=== PATIENT | male | born 1965 | race American Indian/Alaskan Native ===

== ENCOUNTER 2017-01-19 05:18 | Day surgery (SDC) | payer OTHER ==
[2017-01-19] MEDS ORDERED: fentaNYL 100 MCG/2 ML SDV ONE (06:14)
[2017-01-19] MEDS ORDERED: Midazolam 1 MG/ML 2 ML SDV ONE (06:14)
[2017-01-19] MEDS ORDERED: fentaNYL 100 MCG/2 ML SDV IV ONE ×4 (06:30→16:51)
[2017-01-19] MEDS ORDERED: Midazolam 1 MG/ML 2 ML SDV IV ONE ×7 (06:31→16:51)
[2017-01-19] MEDS ORDERED: Sodium Chloride 0.9% 10 ML Syringe FLUSH PRN (07:00)
[2017-01-19] MEDS ORDERED: Dextrose 5%-0.45% NaCl 1,000 ML IV SCH (07:00)
--- NOTE | 2017-01-19 07:13 | OR ---
DATE: 01/19/2017 PROCEDURE: Total colonoscopy. INSTRUMENT USED: CF-H180 AL Olympus video colonoscope. PREMEDICATIONS: Fentanyl 125 mcg intravenous, Versed 4 mg intravenous. Nasal O2 cannula. The procedure was done under pulse oximetry, BP recording, and secured entrance monitor. INDICATION: The patient with Hemoccult-positive stools. Colonoscopic examination is done for detection of any polypoid lesions and removal, endoscopic hemostasis therapy if needed. DESCRIPTION OF PROCEDURE: Initial rectal exam was unremarkable. Rigid anoscopy was normal. The colonoscope was passed with ease. Scattered diverticula were noted in the distal left colon along with some deformity. The scope was passed with ease up to the ileocecal area, photographs were taken of the normal- appearing cecum, identified by double-bulged ileocecal folds. No bleeding was noted from any of the visualized areas at the commencement of the examination. No stricture. No vascular ectasia. No large isolated ulcerations seen. No evidence of diffuse inflammatory bowel disease in the form of friability, contact bleeding, or ulcerations. No polyp or tumor mass identified. Probing the proximal sides of folds and flexures, using adequate distention and clearing of the stool material, withdrawal of the scope was made, cecum to rectum time was 6 minutes. No bleeding was noted from any of the visualized areas at the completion of examination. IMPRESSION: Diverticulosis. The patient tolerated the procedure well. [facility] /[id number]
--- NOTE | 2017-01-19 08:34 | LETTER ---
01/19/2017 Keri Romero NP [facility] [address] [place] [address] RE: ERASMO FAIRBANKS : 1965 Dear Ms. Romero: Mr. Erasmo Fairbanks underwent colonoscopic examination done this morning and he tolerated the procedure well. I herewith send a copy of the endoscopy note and photographs for your review. He has Hemoccult-positive stools and colonoscopy negative for any bleeding areas. He is scheduled for EGD. Thank you. Sincerely, [facility] /[id number]
[2017-01-19 08:51] VITALS: BP 112/67
== END 2017-01-19 08:53 | disposition home or self-care (01) ==
LOC: DL.ENDO 05:18
PROVIDERS: ATTEND Internal Medicine Gastroenterology
DX: K57.30 Diverticulosis of large intestine without perforation or abscess without bleeding (principal); E66.9 Obesity, unspecified; F32.9 Major depressive disorder, single episode, unspecified; E03.9 Hypothyroidism, unspecified; Z90.49 Acquired absence of other specified parts of digestive tract; F17.210 Nicotine dependence, cigarettes, uncomplicated; Z79.899 Other long term (current) drug therapy
CPT/HCPCS: 45378; J2250; J3010; J7042

== ENCOUNTER 2017-01-25 06:09 | Day surgery (SDC) | payer OTHER ==
[2017-01-25] MEDS ORDERED: fentaNYL 100 MCG/2 ML SDV ONE (06:15)
[2017-01-25] MEDS ORDERED: Midazolam 1 MG/ML 2 ML SDV ONE (06:15)
[2017-01-25] MEDS ORDERED: Dextrose 5%-0.45% NaCl 1,000 ML IV SCH (07:00)
[2017-01-25] MEDS ORDERED: fentaNYL 100 MCG/2 ML SDV IV ONE ×3 (07:20→16:29)
[2017-01-25] MEDS ORDERED: Midazolam 1 MG/ML 2 ML SDV IV ONE ×3 (07:21→16:29)
--- NOTE | 2017-01-25 08:01 | OR ---
DATE: 01/25/2017 PROCEDURES: Esophagogastroduodenoscopy and multiple pinch biopsies. INSTRUMENT USED: GIF-H180 Olympus video panendoscope. PREMEDICATIONS: No oral topical anesthesia used. Fentanyl 100 mcg intravenous, Versed 2 mg intravenous, nasal 2 L O2 cannula. The procedure was done under pulse oximetry, BP recording, and electronic device monitor. INDICATION: The patient with Hemoccult-positive stools and colonoscopy examination negative for any bleeding areas. Esophagogastroduodenoscopy is performed for detection of any active erosive lesions, Cross esophagus and/or malignancy also under consideration, H. pylori status to be determined, endoscopic hemostasis therapy if needed. DESCRIPTION OF PROCEDURE: The scope was passed with ease. Adequate visualization of the esophagus was made from proximal to distal areas. No upper esophageal lesions identified. No distal esophageal stricture. No uphill or downhill esophageal varices. No Bonnie-Mcelroy tear. No evidence of erosive esophagitis by [place] criteria. No esophageal polyp or tumor mass identified. Z-line was seen at around 40 cm distal to the oral verge, configuration consistent with grade 1 by ZAP classification. No proximal gastric varices noted. Gastric fundus examination by retroflexion showed no polypoid lesions. No gastric ulcer, malignant mass, or vascular ectasia identified. Patchy erythema of the gastric mucosa was noted in the distal body. Duodenal bulb showed no ulcer. Visualized second part of the duodenum was unremarkable. Multiple pinch biopsies were taken from the gastric antrum and proximal body and sent for PyloriTek test for H. pylori, and if negative in an hour, the tissue is to be sent for histopathology. No bleeding was noted from any of the visualized areas at the completion of examination. Photographs were taken of the duodenal bulb, gastric antrum, fundus, and distal esophagus. IMPRESSION: Patchy gastritis. The patient tolerated the procedure well. [facility] /[id number]
[2017-01-25 09:03] VITALS: BP 104/60
--- NOTE | 2017-01-25 09:55 | LETTER ---
01/25/[address] [facility] [address] [place] [address] RE: ERASMO FAIRBANKS : 1965 Dear Ms. Romero: Mr. Erasmo Fairbanks had esophagogastroduodenoscopy done this morning and he tolerated the procedure well. I herewith send a copy of the endoscopy note and photographs for your review. Thank you. Sincerely, [facility] /[id number]
== END 2017-01-25 09:25 | disposition home or self-care (01) ==
LOC: DL.ENDO 06:09
PROVIDERS: ATTEND Internal Medicine Gastroenterology
DX: K29.50 Unspecified chronic gastritis without bleeding (principal); K31.89 Other diseases of stomach and duodenum; F17.210 Nicotine dependence, cigarettes, uncomplicated; E66.09 Other obesity due to excess calories; E03.9 Hypothyroidism, unspecified; F32.9 Major depressive disorder, single episode, unspecified; G47.00 Insomnia, unspecified; Z88.0 Allergy status to penicillin; Z90.49 Acquired absence of other specified parts of digestive tract; Z79.899 Other long term (current) drug therapy
CPT/HCPCS: 43239; 87077; J2250; J3010; J7042

== ENCOUNTER 2020-09-14 18:46 | Emergency (ER) | payer OTHER ==
[2020-09-14] MEDS ORDERED: Potassium Chloride 10 MEQ Tab.ER PO ONE (18:47)
[2020-09-14] MEDS ORDERED: predniSONE 20 MG Tab PO ONE (18:47)
[2020-09-14] MEDS ORDERED: Azithromycin 250 MG Tab PO ONE (18:47)
[2020-09-14 18:57] VITALS: BP 135/78; PULSE 125
--- NOTE | 2020-09-14 19:36 | CR ---
PROCEDURE INFORMATION: Exam: XR Chest, 1 View Exam date and time: 09/14/2020 7:24 PM Age: 55 years old Clinical indication: Other: Covid TECHNIQUE: Imaging protocol: XR of the chest Views: 1 view. COMPARISON: No relevant prior studies available. FINDINGS: Lungs: Lung volumes are low which limits evaluation. Hazy opacity projecting over the lung bases. Pleural space: Unremarkable. No pleural effusion. No pneumothorax. Heart/Mediastinum: Unremarkable. No cardiomegaly. Bones/joints: Unremarkable. IMPRESSION: Patchy bilateral lower lobe pneumonia and or atelectasis.
[2020-09-14 19:45] LABS: ANION GAP 15.3 mEq/L (7-13); CHLORIDE,CL 94 mmol/L (98-107); SODIUM,NA 129 mmol/L (136-145)
--- NOTE | 2020-09-14 20:25 | EDM.PDOC ---
ED HPI GENERAL MEDICAL PROBLEM - General Chief Complaint: Respiratory Problem Stated Complaint: 97.1* TEMP. HE STATES HAS COVID. HARD TO BREATH Time Seen by Provider: 09/14/20 19:15 Source of Information: Reports: Patient History Limitations: Reports: No Limitations - History of Present Illness INITIAL COMMENTS - FREE TEXT/NARRATIVE: ED with c/o COVID dx 09/09, increased difficulty breathing, unable to sleep denies fever, no loss of taste or smell, some cough. Albuterol inhaler and cough medicine from clinic. Inhaler gone. - Related Data Allergies Allergy/AdvReac Type Severity Reaction Status Date / Time Penicillins Allergy Airway Verified 09/14/20 19:02 Tightness Home Meds: Home Meds Ibuprofen 400 mg PO ASDIRECTED 01/18/17 [History] Levothyroxine [Synthroid] 50 mcg PO DAILY 01/18/17 [History] Ondansetron [IMW: Ondansetron ODT] 4 - 8 mg PO DAILY 01/18/17 [History] Past Medical History Cardiovascular History: Reports: None Respiratory History: Reports: None Gastrointestinal History: Reports: None Genitourinary History: Reports: None Musculoskeletal History: Reports: None Neurological History: Reports: Other (See Below) Other Neuro History: INSOMNIA Psychiatric History: Reports: Depression Endocrine/Metabolic History: Reports: Hypothyroidism, Obesity/BMI 30+ Hematologic History: Reports: None Immunologic History: Reports: None Oncologic (Cancer) History: Reports: None Dermatologic History: Reports: None - Infectious Disease History Infectious Disease History: Reports: Chicken Pox, Measles, Novel Coronavirus - Past Surgical History HEENT Surgical History: Reports: Tonsillectomy GI Surgical History: Reports: Cholecystectomy Musculoskeletal Surgical History: Reports: None Social & Family History - Family History Family Medical History: No Pertinent Family History - Tobacco Use Tobacco Use Status *Q: Former Tobacco User Used Tobacco, but Quit: Yes Month/Year Tobacco Last Used: aug 2020 Second Hand Smoke Exposure: Yes - Recreational Drug Use Recreational Drug Use: No ED ROS GENERAL - Review of Systems Review Of Systems: See Below Constitutional: Reports: Malaise, Fatigue Respiratory: Reports: Shortness of Breath, Cough Cardiovascular: Reports: Dyspnea on Exertion. Denies: Chest Pain, Edema, Lightheadedness, Palpitations GI/Abdominal: Denies: Abdominal Pain, Decreased Appetite, Nausea, Vomiting Musculoskeletal: Reports: No Symptoms Skin: Reports: No Symptoms Neurological: Reports: No Symptoms Psychiatric: Reports: No Symptoms ED EXAM, GENERAL - Physical Exam Exam: See Below Exam Limited By: No Limitations General Appearance: Alert, No Apparent Distress, Obese Eye Exam: Bilateral Eye: EOMI Ears: Normal External Exam Nose: Normal Inspection Throat/Mouth: Normal Inspection, Normal Voice Head: Atraumatic, Normocephalic Neck: Normal Inspection Respiratory/Chest: Rales (bilateral bases, left greater) Cardiovascular: Regular Rate, Rhythm GI/Abdominal: Normal Bowel Sounds Extremities: Normal Inspection, Normal Range of Motion Neurological: Alert, Oriented, Normal Cognition Psychiatric: Normal Affect, Normal Mood Skin Exam: Warm, Dry, Intact, Normal Color Course - Vital Signs Last Recorded V/S: Last Vital Signs Temp 98.6 F 09/14/20 18:52 Pulse 125 H 09/14/20 18:52 Resp 18 09/14/20 18:52 BP 135/78 09/14/20 18:52 Pulse Ox 93 L 09/14/20 18:52 - Orders/Labs/Meds Orders: Active Orders 24 hr Category Date Time Status CULTURE BLOOD [BC] Stat Lab 09/14/20 19:16 Received Blood Culture x2 Reflex Set [OM.PC] Stat Oth 09/14/20 18:55 Ordered Labs: Laboratory Tests 09/14/20 09/14/20 09/14/20 Range/Units 19:16 19:16 19:16 WBC 6.9 (5.0-10.0) 10^3/uL RBC 5.57 (4.6-6.2) 10^6/uL Hgb 16.3 (14.0-18.0) g/dL Hct 47.2 (40.0-54.0) % MCV 84.7 (80-100) fL MCH 29.3 (27.0-34.0) pg MCHC 34.5 (33.0-35.0) g/dL Plt Count 213 (150-450) 10^3/uL Neut % (Auto) 65.9 (42.2-75.2) % Lymph % (Auto) 22.9 (20.5-50.1) % [place] % (Auto) 10.5 H (2-8) % Eos % (Auto) 0.6 L (1.0-3.0) % Baso % (Auto) 0.1 (0.0-1.0) % Add Manual Diff Yes Neutrophils % (Manual) 68 (42-75) % Lymphocytes % (Manual) 24 (20-50) % Monocytes % (Manual) 8 (2-8) % Atypical Lymphocytes Few D-Dimer, Quantitative 945 H (0-400) ng/mL Sodium 129 L (136-145) mmol/L Potassium 3.3 L (3.5-5.1) mmol/L Chloride 94 L (98-107) mmol/L Carbon Dioxide 23 (21-32) mmol/L Anion Gap 15.3 H (7-13) mEq/L BUN 10 (7-18) mg/dL Creatinine 1.00 (0.70-1.30) mg/dL Est Cr Clr Drug Dosing 75.32 mL/min Estimated GFR (MDRD) > 60 BUN/Creatinine Ratio 10.0 (No establ ref range) Glucose 109 H (74-99) mg/dL Lactic Acid (0.4-2.0) mmol/L Calcium 8.2 L (8.5-10.1) mg/dL Magnesium 1.6 L (1.8-2.4) mg/dL Total Bilirubin 0.9 (0.2-1.0) mg/dL AST 43 H (15-37) U/L ALT 45 (16-63) U/L Alkaline Phosphatase 71 (46-116) U/L Total Protein 7.4 (6.4-8.2) g/dL Albumin 3.2 L (3.4-5.0) g/dL Globulin 4.2 Albumin/Globulin Ratio 0.76 Amylase 42 (25-115) U/L Lipase 100 (73-393) U/L 11/30/20 Range/Units 19:16 WBC (5.0-10.0) 10^3/uL RBC (4.6-6.2) 10^6/uL Hgb (14.0-18.0) g/dL Hct (40.0-54.0) % MCV (80-100) fL MCH (27.0-34.0) pg MCHC (33.0-35.0) g/dL Plt Count (150-450) 10^3/uL Neut % (Auto) (42.2-75.2) % Lymph % (Auto) (20.5-50.1) % [place] % (Auto) (2-8) % Eos % (Auto) (1.0-3.0) % Baso % (Auto) (0.0-1.0) % Add Manual Diff Neutrophils % (Manual) (42-75) % Lymphocytes % (Manual) (20-50) % Monocytes % (Manual) (2-8) % Atypical Lymphocytes D-Dimer, Quantitative (0-400) ng/mL Sodium (136-145) mmol/L Potassium (3.5-5.1) mmol/L Chloride (98-107) mmol/L Carbon Dioxide (21-32) mmol/L Anion Gap (7-13) mEq/L BUN (7-18) mg/dL Creatinine (0.70-1.30) mg/dL Est Cr Clr Drug Dosing mL/min Estimated GFR (MDRD) BUN/Creatinine Ratio (No establ ref range) Glucose (74-99) mg/dL Lactic Acid 1.3 (0.4-2.0) mmol/L Calcium (8.5-10.1) mg/dL Magnesium (1.8-2.4) mg/dL Total Bilirubin (0.2-1.0) mg/dL AST (15-37) U/L ALT (16-63) U/L Alkaline Phosphatase (46-116) U/L Total Protein (6.4-8.2) g/dL Albumin (3.4-5.0) g/dL Globulin Albumin/Globulin Ratio Amylase (25-115) U/L Lipase (73-393) U/L Meds: Medications Discontinued Medications Generic Name Dose Route Start Last Admin Trade Name Freq PRN Reason Stop Dose Admin Albuterol Confirm 09/14/20 20:29 09/14/20 20:55 Proventil Hfa Administered 09/14/20 20:30 Not Given Dose 6.7 gm INH .STK-MED ONE Azithromycin Confirm 09/14/20 20:28 09/14/20 20:56 Zithromax Administered 09/14/20 20:29 Not Given Dose 500 mg .ROUTE .STK-MED ONE Potassium Chloride Confirm 09/14/20 20:28 09/14/20 20:55 Klor-Con 10 Administered 09/14/20 20:29 Not Given Dose 20 meq .ROUTE .STK-MED ONE Prednisone Confirm 09/14/20 20:28 09/14/20 20:55 Prednisone Administered 09/14/20 20:29 Not Given Dose 20 mg .ROUTE .STK-MED ONE Departure - Departure Time of Disposition: 20:21 Disposition: Home, Self-Care 01 Condition: Fair Clinical Impression: COVID-19 - Discharge Information *PRESCRIPTION DRUG MONITORING PROGRAM REVIEWED*: No *COPY OF PRESCRIPTION DRUG MONITORING REPORT IN PATIENT KRYSTAL: No Instructions: Steps to Quit Smoking, [id number], COVID-19 Frequently Asked Questions, Prevent the Spread of COVID-19 if You Are Sick - [facility] Forms: ED Department Discharge Additional Instructions: azithromycin 250mg daily x 4 days prednisone 20mg daily x 5 days fluids reposition frequently stop smoking albuterol inhaler 2 puffs every 4 hours as needed for cough wheezing diet as tolerated follow up if symptoms worsen acetaminophen 650mg every 4 hours as needed for body aches/ fever over counter cough/ cold medicine per label instructions avoid ibuprofen containing products Sepsis Event Note (ED) - Evaluation Sepsis Screening Result: No Definite Risk - Focused Exam Vital Signs: Vital Signs Temp Pulse Resp BP Pulse Ox 09/14/20 18:52 98.6 F 125 H 18 135/78 93 L - My Orders Last 24 Hours: My Active Orders 09/14/20 18:55 Blood Culture x2 Reflex Set [OM.PC] Stat 09/14/20 19:16 CULTURE BLOOD [BC] Stat - Assessment/Plan Last 24 Hours: My Active Orders 09/14/20 18:55 Blood Culture x2 Reflex Set [OM.PC] Stat 09/14/20 19:16 CULTURE BLOOD [BC] Stat
[2020-09-14] MEDS ORDERED: Potassium Chloride 10 MEQ Tab.ER ONE (20:28)
[2020-09-14] MEDS ORDERED: predniSONE 20 MG Tab ONE (20:28)
[2020-09-14] MEDS ORDERED: Azithromycin 250 MG Tab ONE (20:28)
[2020-09-14] MEDS ORDERED: Albuterol 6.7 GM Inhaler INH ONE (20:29)
== END 2020-09-14 20:49 | disposition home or self-care (01) ==
LOC: DL.ED 18:46
DX: U07.1 COVID-19 (principal); E03.9 Hypothyroidism, unspecified; E66.9 Obesity, unspecified; Z68.39 Body mass index [BMI] 39.0-39.9, adult; Z87.891 Personal history of nicotine dependence; Z88.0 Allergy status to penicillin; Z79.899 Other long term (current) drug therapy
CPT/HCPCS: 36415; 71045; 80053; 82150; 83605; 83690; 83735; 85025; 85379; 87040; 93005; 99285; A9270; J7512; 99283

== ENCOUNTER 2025-01-24 20:14 | Emergency (ER) | payer OTHER ==
[2025-01-24 20:29] VITALS: BP 154/84; PULSE 110
[2025-01-24] MEDS: Bacitracin Oint 1 GM U/D Packet TOP ONE (20:51)
[2025-01-24] MEDS: Lidocaine 1% 5 ML VIAL INJECT ONE (20:52)
[2025-01-24] MEDS ORDERED: Diphtheria,Pertussis(Acell),Tetanus Vaccine 0.5 ML Syringe ONE (21:42)
[2025-01-24] MEDS: Diphtheria,Pertussis(Acell),Tetanus Vaccine 0.5 ML Syringe IM ONE (21:46)
== END 2025-01-24 22:05 | disposition home or self-care (01) ==
LOC: DL.ED 20:14
DX: S61.214A Laceration without foreign body of right ring finger without damage to nail, initial encounter (principal); E03.9 Hypothyroidism, unspecified; E66.9 Obesity, unspecified; Z88.0 Allergy status to penicillin; Z23 Encounter for immunization; Z79.890 Hormone replacement therapy; Z79.1 Long term (current) use of non-steroidal anti-inflammatories (NSAID); Z79.899 Other long term (current) drug therapy; Z86.16 Personal history of COVID-19; Z90.49 Acquired absence of other specified parts of digestive tract; Z68.41 Body mass index [BMI] 40.0-44.9, adult; W26.9XXA Contact with unspecified sharp object(s), initial encounter
CPT/HCPCS: 12001; 90471; 90715; 99282; A9270; J2003; 99283